=== PATIENT | male | born 1980 | race Caucasian/White ===

== ENCOUNTER 2018-07-21 10:39 | Outpatient (CLI) | payer OTHER ==
[2018-07-21 11:53] LABS: Bilirubin Negative (Negative); Blood, Urine Negative (Negative); Clarity CLEAR (Clear); Glucose, Urine (Dipstick) Negative (Negative); Hemoglobin 16.6 g/dL (14.0-18.0); Leukocyte Negative (Negative); Mean Corpuscular HGB CONC 33.6 g/dL (32.0-36.0); Mean Corpuscular Hemoglobin 31.5 pg (27.0-31.0); Mean Corpuscular Volume 93.8 fL (78.0-98.0); Mean Platelet Volume 7.4 fL (7.4-10.4); Nitrite Negative (Negative); Platelet Count 237 thou/uL (130-400); Protein, Urine (Dipstick) Negative (Neg-Trace); RBC Distribution Width 11.7 % (11.5-14.5); Red Blood Cell (RBC) Count 5.26 mill/uL (4.70-6.10); Specific Gravity, Urine 1.024 (1.002-1.036); Urobilinogen 0.2 mg/dL (0.2-1.0)
[2018-07-21 11:55] LABS: INR-International Normal Ratio 0.9; Prothrombin Time 12.3 SEC (12.0-14.7)
[2018-07-21 11:56] LABS: Bacteria/HPF None Seen HPF (None Seen); Hyaline Casts/LPF 0-3 HYALINE CAST LPF (0-3 Hyaline); RBC/HPF 0-3 HPF (0-3); Squamous Epithelial None Seen HPF (0-3); WBC/HPF None Seen HPF (0-3)
[2018-07-21 12:06] LABS: Anion Gap 12 mmol/L (10-20); BUN (Urea Nitrogen) 15 mg/dL (8.9-20.6); Calc. Creatinine Clearance 0 mL/min (70-130); Calcium 10.2 mg/dL (7.8-10.44); Carbon Dioxide 27 mmol/L (22-29); Chloride 105 mmol/L (98-107); Estimated GFR-MDRD 79; Glucose 100 mg/dL (70-105); Potassium 4.5 mmol/L (3.5-5.1); Sodium 139 mmol/L (136-145)
== END 2018-07-21 10:40 | disposition home or self-care (01) ==
LOC: LABBT 10:39
PROVIDERS: ATTEND Urology
DX: Z01.812 Encounter for preprocedural laboratory examination (principal); N32.0 Bladder-neck obstruction
CPT/HCPCS: 80048; 81001; 85027; 85610; 85730; 87086

== ENCOUNTER 2018-07-31 07:01 | Day surgery (SDC) | payer OTHER ==
[2018-07-21 11:02] VITALS: BMI 35.6
[2018-07-31] MEDS ORDERED: Levofloxacin 500 mg/D5W 100 ml Premix Bag ONE (08:46)
[2018-07-31] MEDS ORDERED: Midazolam HCl 2 mg/2 ml Vial ONE (09:29)
[2018-07-31] MEDS ORDERED: Fentanyl 100 MCG/2 ML VIAL ONE ×3 (09:45→12:11)
[2018-07-31] MEDS ORDERED: Oxybutynin 5 MG TAB ONE (12:19)
[2018-07-31] MEDS ORDERED: Phenazopyridine HCl 97.5 MG TABLET ONE (12:20)
--- NOTE | 2018-07-31 12:46 | OP ---
DATE OF PROCEDURE: 07/31/2018 SERVICE: Urology. PREOPERATIVE DIAGNOSIS: Bladder outlet obstruction. POSTOPERATIVE DIAGNOSIS: Bladder outlet obstruction. PROCEDURE PERFORMED: Transurethral incision of the prostate. INDICATIONS FOR PROCEDURE: Mr. Huang is a 38-year-old male, who initially presented to me with weak urinary stream and urinary symptoms. He had significant improvement on Flomax and on cystoscopy, had demonstration of high bladder neck with small prostate. I had counseled them regarding transurethral incision of the prostate. He understands the risks of retrograde ejaculation and all the risks we had discussed and agreed to proceed forward. DESCRIPTION OF PROCEDURE: After identification of armband and verification of consent, the patient was brought back to the operating room, where he underwent general anesthesia with an LMA. He was then placed in dorsal lithotomy position and prepped and draped in usual sterile fashion. After appropriate time-out, attempts to place the resectoscope into the meatus was unsuccessful, as the patient's meatus was too small. This had to be dilated using Estela sounds up to 28-Brazilian. At this point, the resectoscope was able to be passed with ease to the urethra. 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 Once inside the bladder, the visual obturator was switched out for the bipolar button. The button was used to make incisions at 5 and 7 o'clock or along the bladder neck to drop the bladder neck and make it more open. The intervening tissue between the 2 incisions was vaporized until the bladder neck was wide open. Minimal to no treatment of the lateral lobes was necessary. These were not obstructive. The anterior prostate was also not touched. Incision was taken to just approximately a centimeter proximal to the verumontanum. Meticulous hemostasis was performed and when completely dry, the resectoscope was removed with bladder full. An 18-Brazilian, 2-way Marquez catheter was placed with ease into the bladder with 15 mL of sterile water in the balloon. This was affixed to the patient's leg with a StatLock and connected to gravity drainage. The patient was then awakened and taken to PACU for recovery in stable condition. COMPLICATIONS: None. ESTIMATED BLOOD LOSS: Minimal. RETAINED TUBES AND DRAINS: An 18-Brazilian Marquez catheter to gravity drainage. SPECIMENS: None. DISPOSITION: The patient will be monitored for an hour. If his urine is clear, we will take his catheter out and he can be discharged to home. If he has hematuria, then we will keep the catheter in and have him do a void trial tomorrow in the office. Job ID: [id number]
[2018-07-31] MEDS ORDERED: Lidocaine 1% PF 5 ML VIAL ONE (12:51)
[2018-07-31] MEDS ORDERED: PROPOFOL 200 MG/20 ML VIAL ONE (12:51)
[2018-07-31] MEDS ORDERED: Ondansetron PF 4 MG/2 ML Vial ONE (12:51)
[2018-07-31] MEDS ORDERED: Ketorolac Tromethamine 30 MG/ML VIAL ONE (12:51)
== END 2018-07-31 16:05 | disposition home or self-care (01) ==
LOC: SDC 07:01
PROVIDERS: ATTEND Urology
PROC: 0VB08ZZ Excision of Prostate, Via Natural or Artificial Opening Endoscopic (ICD-10-PCS; principal; 2018-07-31)
DX: N32.0 Bladder-neck obstruction (principal); F17.210 Nicotine dependence, cigarettes, uncomplicated
CPT/HCPCS: 96374; J1885; J1956; J2001; J2250; J2405; J2704; J3010

== ENCOUNTER 2018-10-24 17:14 | Emergency (ER) | payer OTHER ==
--- NOTE | 2018-10-24 18:27 | RAD ---
RIGHT SHOULDER THREE VIEW 10/24/18 HISTORY: Injury. COMPARISON: None. FINDINGS: There is a sessile osteochondroma of the right proximal humeral metadiaphysis. No acute fracture or m alalignment. There is some scarring right lung apex. Visualized ribs are intact. Acromioclavicular al ignment is within normal limits. IMPRESSION: No acute abnormality. POS: [facility]
--- NOTE | 2018-10-24 18:28 | RAD ---
LUMBAR SPINE TWO VIEW 10/24/18 HISTORY: Injury. Pain. COMPARISON: None. FINDINGS: There is an abnormal linear lucency of the right L2 transverse process, although could be overlying b owel gas. The vertebral body heights and disc spaces are maintained aside from mild narrowing at L5-S 1 disc space. IMPRESSION: Possibly nondisplaced right L2 transverse process fracture. POS: [facility]
[2018-10-24] MEDS ORDERED: HYDROcodone/Acetaminophen 5/325 mg Tablet ONE (18:51)
== END 2018-10-24 18:54 | disposition home or self-care (01) ==
LOC: SCSER 17:14
DX: S39.012A Strain of muscle, fascia and tendon of lower back, initial encounter (principal); S43.401A Unspecified sprain of right shoulder joint, initial encounter; N40.0 Benign prostatic hyperplasia without lower urinary tract symptoms; F17.210 Nicotine dependence, cigarettes, uncomplicated; W19.XXXA Unspecified fall, initial encounter; Y93.02 Activity, running
CPT/HCPCS: 72100

== ENCOUNTER 2020-05-16 12:19 | Outpatient (CLI) | payer OTHER ==
--- NOTE | 2020-05-16 12:49 | RAD ---
Exam: 4 views lumbar spine HISTORY: Pain. COMPARISON: None FINDINGS: 5 lumbar type vertebra. Lumbar spine vertebral body height is maintained. No fracture. Disc space heights are preserved. No spondylolisthesis or spondylolysis. Intact sacrum and bony pelvis. Symmetric sacral joints IMPRESSION: No radiographic evidence of significant degenerative change.
== END 2020-05-16 12:20 | disposition home or self-care (01) ==
LOC: BICRAD 12:19
PROVIDERS: ATTEND Internal Medicine Rheumatology
DX: M54.5 Low back pain (principal)
CPT/HCPCS: 72110